=== PATIENT | female | born 1995 | race Caucasian/White ===

== ENCOUNTER 2022-04-27 14:09 | Inpatient (IN) | payer BC ==
[~2022-04-27] VITALS: Ht 162.6 cm; Wt 63.5 kg
[2022-04-27 15:12] LABS: HEMATOCRIT 47.6 % (31.2-41.9); MEAN CORPUSCULAR HEMOGLOBIN 31.1 uug (24.7-32.8); MEAN CORPUSCULAR VOLUME 93.8 fL (75.5-95.3); PLATELET COUNT (AUTO) 125 K/uL (179-408)
[2022-04-27 15:34] LABS: CREATININE 0.9 mg/dL (0.6-1.3); POTASSIUM 3.9 mmol/L (3.5-5.1)
[2022-04-27 15:46] LABS: BILIRUBIN,TOTAL 0.8 mg/dL (0.2-1.0); TOTAL PROTEIN, SERUM 8.4 g/dL (6.4-8.2)
[2022-04-27] MEDS ORDERED: ACETAMINOPHEN 325 MG TABLET PO ONE (16:45)
[2022-04-27] MEDS ORDERED: KETOROLAC TROMETHAMINE 15 MG INJ ONE (17:42)
[2022-04-27] MEDS ORDERED: KETOROLAC TROMETHAMINE 15 MG INJ IVP ONE (17:45)
[2022-04-27 18:02] LABS: ACETAMINOPHEN < 10.0 ug/mL (10-30); ETHANOL < 3 MG/DL (0-0)
--- NOTE | 2022-04-27 18:04 | NUR ---
Dr Jay attempted to place a Iv line to LT ac/brachia, unable to. 4x4 applied, no bleeding noted.
--- NOTE | 2022-04-27 18:40 | NUR ---
Dr Hagen spoke to Dr Mcgill for Tele admit.
--- NOTE | 2022-04-27 19:10 | NUR ---
JOSH Kirk RN
--- NOTE | 2022-04-27 20:35 | NUR ---
called 3rd floor for TELE bed, spoke with Kasey ADAMS. Patient assigned to room 304
[2022-04-27] MEDS ORDERED: ACETAMINOPHEN 325 MG TABLET PO PRN (21:00)
[2022-04-27] MEDS ORDERED: ONDANSETRON 4 MG/2 ML VIAL IV PRN (21:00)
--- NOTE | 2022-04-27 21:14 | NUR ---
Endorsed to Hanh ADAMS
--- NOTE | 2022-04-27 22:15 | NUR ---
Pt. admitted to TELE room 304 , under care of Dr. gramajo Belongs List completed Hanh RN aware of patient's arrival
[2022-04-27 22:27] VITALS: BP 103/69
[2022-04-27] MEDS: LORAZEPAM 2 MG/1 ML VIAL IV PRN (22:27)
--- NOTE | 2022-04-27 22:30 | NUR ---
RECEIVED PATIENT VIA W/C FROM ER. PATIENT IS A/O X4. DENIES ANY PAIN OR DISCOMFORT. C/O NAUSEA AND ANXIETY. VS WNL. PLACED ON TELE ORDERED, SR. ORIENTED PATIENT TO ROOM AND CALL LIGHT. CALL LIGHT IN REACH. ALL NEEDS ATTENDED. WILL CONTINUE TO MONITOR AND ASSESS.
--- NOTE | 2022-04-28 00:05 | NUR ---
PACEMAKER IS NOTED IN THE LEFT UPPER QUADRANT OF ABDOMEN. Addendum: 04/28/22 at 0017 by VANDANA JC LVN Amended: Links added.
[2022-04-28] MEDS: HYDROCODONE/APAP 5-325MG TABLET PO PRN ×2 (02:39→17:42)
[2022-04-28] MEDS ORDERED: MORPHINE SULFATE 2 MG/1 ML DISP.SYRIN IV ONE (04:00)
[2022-04-28 04:12] VITALS: BP 108/67
[2022-04-28] MEDS: LORAZEPAM 2 MG/1 ML VIAL IV PRN ×3 (05:53→19:00)
[2022-04-28] MEDS: PANTOPRAZOLE SODIUM 40 MG TABLET.DR PO SCH (06:21)
[2022-04-28 07:21] LABS: HEMATOCRIT 41.9 % (31.2-41.9); MEAN CORPUSCULAR HEMOGLOBIN 31.3 uug (24.7-32.8); PLATELET COUNT (AUTO) 108 K/uL (179-408)
--- NOTE | 2022-04-28 07:30 | NUR ---
RECEIVED PATIENT IN BED AWAKE ALERT AND VERBALLY RESPONSIVE DENIES PAIN OR DISCOMFORTS AT TIME TELE IS SR ON ROOM AIR WITH NO SOB.CALL LIGHTS AND PERSONAL BELONGINGS ARE WITHIN EASY REACH AT THIS TIME WILL CONTINUE TO OBSERVE.
[2022-04-28 07:52] LABS: BILIRUBIN,TOTAL 0.6 mg/dL (0.2-1.0); CREATININE 0.8 mg/dL (0.6-1.3); MAGNESIUM 1.8 mg/dL (1.8-2.4); PHOSPHOROUS 4.4 mg/dL (2.5-4.9); POTASSIUM 4.1 mmol/L (3.5-5.1); TOTAL PROTEIN, SERUM 6.9 g/dL (6.4-8.2)
--- NOTE | 2022-04-28 08:00 | NUR ---
PATIENT SEEN AND EXAMINED BY DR DURHAM WITH NEW ORDERS AND NOTED.
[2022-04-28] MEDS: IBUPROFEN 800 MG TABLET PO SCH ×2 (08:49→16:32)
[2022-04-28 10:02] LABS: *AMPHETAMINE, URINE NEGATIVE (NEGATIVE); *CANNABINOID, URINE NEGATIVE (NEGATIVE); *COCCAINE, URINE NEGATIVE (NEGATIVE); *PHENCYCLIDINE SCREEN,URINE NEGATIVE (NEGATIVE)
[2022-04-28] MEDS ORDERED: IOHEXOL 300MG/ML 100 ML INFUS..BTL ONE (10:12)
[2022-04-28] MEDS ORDERED: IV NORMAL SALINE 250 ML IV ONE (10:12)
[2022-04-28] MEDS ORDERED: SWABABLE VALVE TRANSFER SET EA MC ONE (10:12)
--- NOTE | 2022-04-28 10:24 | NUR ---
PATIENT C/O HAS CHEST PAIN UNABLE TO GIVE NORCO BECAUSE SHE IS NPO SHE ASKED FOR THE ATIVAN BUT IT WAS NOT DUE SO I CALLED AND SPOKE WITH DR HONEYCUTT WITH NEW ORDERS AND NOTED.
[2022-04-28] MEDS ORDERED: MORPHINE SULFATE 2 MG/1 ML DISP.SYRIN IV PRN (10:30)
[2022-04-28 11:46] VITALS: BP 106/64
--- NOTE | 2022-04-28 12:15 | NUR ---
CALL RECEIVED FROM DR HONEYCUTT STATED TO DISCONTINUE THE MORPHINE HE ORDERED THIS AM BUT INSTEAD TO USE TORADOL IVP DAILY PRN AND NOTED PATIENT AWAKE
--- NOTE | 2022-04-28 14:27 | NUR ---
NEW ORDER NOTED FOR MIDLINE INSERTION PATIENT HAS POOR VEINOUS ACCESS MID LINE RN HERE AND GAUGE 18 INSERTED TO HER LEFT UPPER ARM AND TOLERATED WELL.
[2022-04-28] MEDS: KETOROLAC TROMETHAMINE 15 MG INJ IVP PRN (14:53)
--- NOTE | 2022-04-28 14:54 | NUR ---
PATIENT REQUESTING FOR PAIN MEDICATION GAVE HER A CHOICE OF EITHER THE TORADOL OR THE NORCO AND SHE PREFFERED THE TORADOL FOR NOW STATED WILL TAKE NORCO LATER.SO MEDICATED WITH TORADOL ORDERED.
--- NOTE | 2022-04-28 16:04 | NUR ---
ECHO COMPLETED ORDERED AND EF IS 55-60 AT THIS TIME
[2022-04-28 16:38] VITALS: BP 110/68
--- NOTE | 2022-04-28 18:00 | NUR ---
RESTING IN ROOM SEEMS COMFORTABLE WITH NO C/O AT THIS TIME
[2022-04-28 20:39] VITALS: BP 102/63
[2022-04-29 00:05] VITALS: BP 93/71
[2022-04-29] MEDS: IBUPROFEN 800 MG TABLET PO SCH ×2 (00:45→08:38)
[2022-04-29] MEDS: LORAZEPAM 2 MG/1 ML VIAL IV PRN ×2 (01:11→08:48)
[2022-04-29] MEDS: HYDROCODONE/APAP 5-325MG TABLET PO PRN (04:12)
[2022-04-29 04:30] VITALS: BP 102/68
[2022-04-29] MEDS: PANTOPRAZOLE SODIUM 40 MG TABLET.DR PO SCH (06:45)
--- NOTE | 2022-04-29 07:05 | NUR ---
Slept intermittently, alert and oriented x 4. In no acute distress. Sinus rhythm on tele. DARREN midline intact and patent. C/o chest pain given norco, she stated it doesn't help at all but noted sound asleep. Needs assessed and attended to.
--- NOTE | 2022-04-29 07:15 | NUR ---
RECEIVED PATIENT IN BED ASLEEP BUT IS EASILY AROUSABLE ON ROUNDS REMAIN ON O2 WITH NO SHORTNESS OF BREATH TELE IS SR CALL LIGHT AND PERSONAL BELONGINGS ARE WITHIN EASY REACH AT THIS TIME WILL CONTINUE TO OBSERVE.
--- NOTE | 2022-04-29 09:30 | NUR ---
PATIENT SEEN AND EXAMINED BY DR DURHAM WITH NO NEW ORDERS AT THIS TIME.
[2022-04-29] MEDS ORDERED: IBUP-1957 PO (10:33)
[2022-04-29 10:40] LABS: HEMATOCRIT 42.3 % (31.2-41.9); MEAN CORPUSCULAR HEMOGLOBIN 31.2 uug (24.7-32.8); MEAN CORPUSCULAR VOLUME 93.9 fL (75.5-95.3); PLATELET COUNT (AUTO) 88 K/uL (179-408)
[2022-04-29 10:50] LABS: CREATININE 0.6 mg/dL (0.6-1.3); MAGNESIUM 1.7 mg/dL (1.8-2.4); PHOSPHOROUS 2.9 mg/dL (2.5-4.9); POTASSIUM 4.3 mmol/L (3.5-5.1)
[2022-04-29] MEDS: KETOROLAC TROMETHAMINE 15 MG INJ IVP PRN (10:55)
--- NOTE | 2022-04-29 12:00 | NUR ---
PATIENT SEEN BY DR GURROLA WITH ORDER TO DISCHARGE PATIENT HOME TODAY.PATIENT IS AWARE AND STATED THAT HER FRIEND TERESSA WILL BE ABLE TO PICK HER UP ABOUT 1300 WILL PREPARE THE DISCHARGE PAPERS.
[2022-04-29 12:44] VITALS: BP 96/60
--- NOTE | 2022-04-29 13:35 | NUR ---
PATIENT DISCHARGED PICKED UP BY HER FRIEND IN SATISFACTORY CONDITION WITH DISCHARGE INSTRUCTIONS AND PATIENT INSTRUCTED TO FOLLOW UP WITH HER PIPE ROLLER WITHIN THE NEXT ONE TO TWO WEEKS AND SHE EXPRESSED UNDERSTANDING MID LINE AND ARM BAND REMOVED.
== END 2022-04-29 13:35 | disposition other institution (70) | DRG 206 ==
LOC: ER 14:12 → TELE3 21:57
PROVIDERS: ADMIT Internal Medicine; ATTEND Internal Medicine
DX: M94.0 Chondrocostal junction syndrome [Tietze] (principal); T82.7XXA Infection and inflammatory reaction due to other cardiac and vascular devices, implants and grafts, initial encounter; R07.1 Chest pain on breathing; R93.1 Abnormal findings on diagnostic imaging of heart and coronary circulation; Z95.4 Presence of other heart-valve replacement; Z86.74 Personal history of sudden cardiac arrest; Z95.810 Presence of automatic (implantable) cardiac defibrillator; F17.200 Nicotine dependence, unspecified, uncomplicated; F15.10 Other stimulant abuse, uncomplicated; F11.90 Opioid use, unspecified, uncomplicated; Z20.822 Contact with and (suspected) exposure to COVID-19; I36.8 Other nonrheumatic tricuspid valve disorders; Z76.5 Malingerer [conscious simulation]; Z28.310 Unvaccinated for COVID-19; Y71.8 Miscellaneous cardiovascular devices associated with adverse incidents, not elsewhere classified; Y92.89 Other specified places as the place of occurrence of the external cause; R74.01 Elevation of levels of liver transaminase levels
CPT/HCPCS: 36415; 71045; 71046; 71250; 71260; 83605; 83735; 84100; 84484; 85025; 85651; 86140; 87040; 93307; A4663; G0378; G0480; J1885; J2060; J2270; J2405; Q9967